=== PATIENT | male | born 1950 | race Caucasian/White ===

== ENCOUNTER 2018-10-21 06:54 | Day surgery (SDC) | payer MEDICARE, OTHER ==
[~2018-10-21] VITALS: Ht 175.3 cm; Wt 100.2 kg
[~2018-10-21 06:54] MED LIST: ASPI81EC PO; ENOX100I SUBQ; TAMS.4ER; TESTOSTERONE; TRAM50; VITAMIN D-32000 UNIT; WARF5 PO
[2018-10-21] MEDS ORDERED: Cymbalta20 MG (07:46)
[2018-10-21] MEDS ORDERED: TYLENOL325 MG PO (07:47)
[2018-10-21] MEDS ORDERED: WARF5 (07:48)
[2018-10-21] MEDS ORDERED: WARF7.5 (07:48)
== END 2018-10-21 09:25 | disposition home or self-care (01) ==
LOC: ORSCSDS 06:54
PROVIDERS: Internal Medicine Gastroenterology
PROC: 0DBP8ZX Excision of Rectum, Via Natural or Artificial Opening Endoscopic, Diagnostic (ICD-10-PCS; principal; 2018-10-21 08:30)
DX: Z12.11 Encounter for screening for malignant neoplasm of colon (principal); K62.1 Rectal polyp; K57.30 Diverticulosis of large intestine without perforation or abscess without bleeding; K64.8 Other hemorrhoids; J45.909 Unspecified asthma, uncomplicated; Z86.010 Personal history of colon polyps; Z86.711 Personal history of pulmonary embolism; E66.01 Morbid (severe) obesity due to excess calories; Z68.36 Body mass index [BMI] 36.0-36.9, adult; Z79.01 Long term (current) use of anticoagulants; Z79.899 Other long term (current) drug therapy
CPT/HCPCS: 88305; J0330; J1980; J2001; J2405; J7120

== ENCOUNTER → 2020-04-12 | Outpatient (CLI) | payer MEDICARE ==
[~2020-04-12] MED LIST changes: +Cymbalta20 MG; +TYLENOL325 MG PO; +WARF5; +WARF7.5
== END | disposition home or self-care (01) ==
LOC: PLD 15:06 → LAB SHORT 15:06
DX: C44.629 Squamous cell carcinoma of skin of left upper limb, including shoulder (principal)
CPT/HCPCS: 88305

== ENCOUNTER → 2021-07-30 | Outpatient (CLI) | payer MEDICARE, OTHER | END | disposition home or self-care (01) | LOC: LAB 11:34 → LAB SHORT 11:34 | DX: D48.5 Neoplasm of uncertain behavior of skin (principal); L82.1 Other seborrheic keratosis | CPT/HCPCS: 88305 ==

== ENCOUNTER → 2023-04-17 | Outpatient (CLI) | payer MEDICARE, OTHER ==
[~2023-04-17] MED LIST changes: +AMOX-CLAV 875-1 EAC5 PO; +EZETIMIBE10 M6 PO; +HYDR1TAB94 PO; +IRBESARTAN300 M3 PO; +NEURONTIN300 MG; +XARELTO20 MG PO
== END ==
LOC: LAB 11:53 → LAB SHORT 11:53
DX: D48.5 Neoplasm of uncertain behavior of skin (principal)
CPT/HCPCS: 88305